=== PATIENT | female | born 1985 | race American Indian/Alaskan Native ===

== ENCOUNTER 2020-06-26 11:40 | Inpatient (IN) | payer BC ==
[~2020-06-26] VITALS: Ht 170.2 cm; Wt 103.4 kg
[2020-06-26 11:47] VITALS: Ht 170.2 cm; Wt 103.4 kg
[2020-06-26 13:26] LABS: BASOPHIL % 0.7 % (0-2)
[2020-06-26 13:45] LABS: UA SPECIFIC GRAVITY 1.015 (1.005-1.035); microscopic required? YES; urine erythrocyte 3+ (NEGATIVE)
[2020-06-26 13:48] LABS: PLATELET COUNT 412 x10^3mcL (130-400); RED CELL DISTRIBUTION WIDTH 14.6 % (11.5-14.5)
[2020-06-26 14:19] LABS: BILIRUBIN TOTAL 1.4 mg/dL (0.20-1.00); CARBON DIOXIDE 22.4 mmol/L (21-32); POTASSIUM SERUM 5.1 mmol/L (3.5-5.1)
[2020-06-26 14:21] LABS: ALBUMIN 3.3 g/dL (3.4-5.0)
[2020-06-26 14:22] LABS: TOTAL PROTEIN, SERUM 8.3 g/dL (6.4-8.2)
[2020-06-26 14:24] LABS: CREATININE SERUM 6.9 mg/dL (0.6-1.0)
[2020-06-26] MEDS ORDERED: [UNRECOGNIZED DRUG - OTHER] PO (17:32)
[2020-06-26 18:05] VITALS: BP 155/80
[2020-06-26 20:40] VITALS: BP 151/81
[2020-06-27 05:30] VITALS: BP 138/79
[2020-06-27 06:33] LABS: BASOPHIL % 0.3 % (0-2); PLATELET COUNT 321 x10^3mcL (130-400)
[2020-06-27 06:55] LABS: BILIRUBIN TOTAL 1.32 mg/dL (0.20-1.00); CALCIUM 8.7 mg/dL (8.5-10.1); CARBON DIOXIDE 21.1 mmol/L (21-32); TOTAL PROTEIN, SERUM 6.7 g/dL (6.4-8.2)
[2020-06-27 07:01] LABS: ALBUMIN 2.6 g/dL (3.4-5.0)
[2020-06-27 07:02] LABS: CREATININE SERUM 6.6 mg/dL (0.6-1.0); RED CELL DISTRIBUTION WIDTH 14.6 % (11.5-14.5)
[2020-06-27 08:50] VITALS: BP 154/86
[2020-06-27 12:34] VITALS: BP 108/82
[2020-06-27 17:38] VITALS: BP 131/86
[2020-06-27 19:19] VITALS: BP 138/87
[2020-06-28 05:31] VITALS: BP 103/66
[2020-06-28 07:30] VITALS: BP 148/92
[2020-06-28 12:10] VITALS: BP 142/94
[2020-06-28 16:43] LABS: BASOPHIL % 0.3 % (0-2); PLATELET COUNT 333 x10^3mcL (130-400); RED CELL DISTRIBUTION WIDTH 14.5 % (11.5-14.5)
[2020-06-28 16:44] VITALS: BP 146/91
[2020-06-28 17:09] LABS: ALBUMIN 3.4 g/dL (3.4-5.0); BILIRUBIN TOTAL 1.3 mg/dL (0.20-1.00); CALCIUM 9.4 mg/dL (8.5-10.1); CARBON DIOXIDE 21.4 mmol/L (21-32); POTASSIUM SERUM 4.4 mmol/L (3.5-5.1); TOTAL PROTEIN, SERUM 7.9 g/dL (6.4-8.2)
[2020-06-28 17:13] LABS: CREATININE SERUM 5.2 mg/dL (0.6-1.0)
[2020-06-28 20:59] VITALS: BP 144/81
[2020-06-29 06:11] VITALS: BP 141/76
[2020-06-29 06:53] LABS: BASOPHIL % 0.5 % (0-2); PLATELET COUNT 280 x10^3mcL (130-400)
[2020-06-29 07:05] LABS: RED CELL DISTRIBUTION WIDTH 14.6 % (11.5-14.5)
[2020-06-29 07:30] VITALS: BP 136/78
[2020-06-29 07:35] LABS: BILIRUBIN TOTAL 1.2 mg/dL (0.20-1.00); CALCIUM 8.9 mg/dL (8.5-10.1); CARBON DIOXIDE 21.1 mmol/L (21-32); PHOSPHOROUS 3.8 mg/dL (2.5-4.9); POTASSIUM SERUM 4.8 mmol/L (3.5-5.1)
[2020-06-29 07:36] LABS: CREATININE SERUM 4.5 mg/dL (0.6-1.0)
[2020-06-29 11:40] VITALS: BP 156/85
[2020-06-29 16:18] VITALS: BP 154/88
[2020-06-29 20:24] VITALS: BP 147/78
[2020-06-30] VITALS (7 sets, daily range): BP systolic 148–182; BP diastolic 73–97
[2020-06-30 06:55] LABS: BASOPHIL % 0.4 % (0-2); PLATELET COUNT 283 x10^3mcL (130-400); RED CELL DISTRIBUTION WIDTH 14.5 % (11.5-14.5)
[2020-06-30 07:30] LABS: BILIRUBIN TOTAL 1.33 mg/dL (0.20-1.00); CALCIUM 8.6 mg/dL (8.5-10.1); CARBON DIOXIDE 19.1 mmol/L (21-32); POTASSIUM SERUM 4.3 mmol/L (3.5-5.1); TOTAL PROTEIN, SERUM 6.9 g/dL (6.4-8.2)
[2020-06-30 07:36] LABS: ALBUMIN 2.9 g/dL (3.4-5.0)
[2020-06-30 09:29] LABS: CARBON DIOXIDE 19.2 mmol/L (21-32); CREATININE SERUM 3.7 mg/dL (0.6-1.0); POTASSIUM SERUM 4.4 mmol/L (3.5-5.1)
[2020-07-01 05:32] VITALS: BP 146/104
[2020-07-01 07:38] LABS: BASOPHIL % 0.5 % (0-2); PLATELET COUNT 270 x10^3mcL (130-400); RED CELL DISTRIBUTION WIDTH 13.9 % (11.5-14.5)
[2020-07-01 08:01] LABS: BILIRUBIN TOTAL 0.97 mg/dL (0.20-1.00); CALCIUM 8.6 mg/dL (8.5-10.1); CARBON DIOXIDE 19.6 mmol/L (21-32); CREATININE SERUM 3.1 mg/dL (0.6-1.0); PHOSPHOROUS 3.4 mg/dL (2.5-4.9); POTASSIUM SERUM 4.1 mmol/L (3.5-5.1); TOTAL PROTEIN, SERUM 6.9 g/dL (6.4-8.2)
[2020-07-01 08:07] LABS: ALBUMIN 2.9 g/dL (3.4-5.0)
[2020-07-01 08:15] VITALS: BP 166/108
[2020-07-01 12:42] VITALS: BP 154/100
[2020-07-01 16:32] VITALS: BP 144/104
[2020-07-01 21:57] VITALS: BP 139/90
[2020-07-02 05:11] VITALS: BP 136/88
[2020-07-02 07:30] LABS: BILIRUBIN TOTAL 0.8 mg/dL (0.20-1.00); CALCIUM 9.1 mg/dL (8.5-10.1); CARBON DIOXIDE 21.8 mmol/L (21-32); CREATININE SERUM 2.8 mg/dL (0.6-1.0); POTASSIUM SERUM 4.3 mmol/L (3.5-5.1); TOTAL PROTEIN, SERUM 7.3 g/dL (6.4-8.2)
[2020-07-02 09:01] VITALS: BP 145/95
[2020-07-02 12:59] VITALS: BP 145/100
== END 2020-07-02 14:35 | disposition home or self-care (01) | DRG 417 ==
LOC: ED 11:40 → DU 17:03 → MU 17:03 → DU 17:03 → MU 17:53 → DU 06-27 03:58
PROVIDERS: Emergency Medicine; Internal Medicine; Surgery; ADMIT Internal Medicine; ATTEND Internal Medicine
PROC: 0FT44ZZ Resection of Gallbladder, Percutaneous Endoscopic Approach (ICD-10-PCS; 2020-06-29)
PROC: BF131ZZ Fluoroscopy of Gallbladder and Bile Ducts using Low Osmolar Contrast (ICD-10-PCS; principal; 2020-06-29 07:30)
DX: K80.00 Calculus of gallbladder with acute cholecystitis without obstruction (principal); K85.10 Biliary acute pancreatitis without necrosis or infection; N17.0 Acute kidney failure with tubular necrosis; N39.0 Urinary tract infection, site not specified; I10 Essential (primary) hypertension; E66.01 Morbid (severe) obesity due to excess calories; Z84.89 Family history of other specified conditions; Z68.36 Body mass index [BMI] 36.0-36.9, adult; Z79.899 Other long term (current) drug therapy
CPT/HCPCS: 94150; G0378; J1170; J1885; J1956; J2270; J2405; J2543; J2550; J3490; J7030; J7050; P9047; Q0092; Q9967